=== PATIENT | male | born 1960 | race Two or more races ===

== ENCOUNTER 2021-09-30 22:26 | Emergency (ER) | payer OTHER ==
[~2021-09-30] VITALS: Ht 182.9 cm; Wt 74.5 kg
[2021-10-01] MEDS ORDERED: TRANEXAMIC ACID 1,000 MG/10 ML VIAL IVP ONE (01:15)
[2021-10-01] MEDS ORDERED: LIDOCAINE 1%/EPI 1:100,000 30 ML VIAL SQ ONE (01:15)
[2021-10-01] MEDS ORDERED: FURO20 PO (01:20)
[2021-10-01] MEDS ORDERED: ASPI-1444 PO (01:20)
[2021-10-01] MEDS ORDERED: CHOL500013 PO (01:20)
[2021-10-01] MEDS ORDERED: LOSA-370 PO (01:20)
[2021-10-01] MEDS ORDERED: FERR-89 PO (01:20)
[2021-10-01] MEDS ORDERED: NITR0.4T52 SL (01:20)
[2021-10-01] MEDS ORDERED: CARV6 PO (01:20)
[2021-10-01] MEDS ORDERED: SPIR-37 PO (01:20)
[2021-10-01] MEDS ORDERED: CLOP75TA60 PO (01:20)
[2021-10-01] MEDS ORDERED: ATOR40TA28 PO (01:20)
[2021-10-01 03:10] VITALS: BP 117/74
[2021-10-01] MEDS ORDERED: GELATIN SPONGE,ABSORBABLE 100 MM TP ONE (03:30)
== END 2021-10-01 04:14 | disposition home or self-care (01) ==
LOC: EMS 22:28
DX: S91.312A Laceration without foreign body, left foot, initial encounter (principal); I11.0 Hypertensive heart disease with heart failure; I50.9 Heart failure, unspecified; E78.00 Pure hypercholesterolemia, unspecified; Z88.0 Allergy status to penicillin; Z79.899 Other long term (current) drug therapy; W45.8XXA Other foreign body or object entering through skin, initial encounter; Y93.89 Activity, other specified; Y92.89 Other specified places as the place of occurrence of the external cause; Y99.8 Other external cause status
CPT/HCPCS: 99283; J3490 ×2

== ENCOUNTER 2022-01-21 15:43 | Emergency (ER) | payer OTHER ==
[~2022-01-21] VITALS: Ht 183.5 cm; Wt 75.5 kg
[~2022-01-21 15:43] MED LIST: ASPI-1444 PO; ATOR40TA28 PO; CARV6 PO; CHOL500013 PO; CLOP75TA60 PO; FERR325T27 PO; FURO20 PO; LOSA-381 PO; NITR0.4T52 SL; SPIR-37 PO
[2022-01-21 17:49] LABS: BASOPHILS % (AUTO) 1.2 % (0.0-2.0); EOSINOPHILS % (AUTO) 1.1 % (1.0-6.0); HEMATOCRIT 38.4 % (41-53); HEMOGLOBIN 12.9 g/dL (13.5-17.5); LYMPHOCYTES # (AUTO) 1.9 K/uL (1.0-4.8); LYMPHOCYTES % (AUTO) 32.1 % (22.0-44.0); MEAN CORPUSCULAR HEMOGLOBIN 30.8 pg (26.0-34.0); MEAN CORPUSCULAR HGB CONC 33.6 G/dL (31.0-37.0); MEAN CORPUSCULAR VOLUME 92 fL (80-100); MONOCYTES # (AUTO) 0.4 K/uL (0.1-1.0); MONOCYTES % (AUTO) 7.4 % (2.0-9.0); NEUTROPHILS # (AUTO) 3.4 K/uL (1.8-7.7); NEUTROPHILS % (AUTO) 58.2 % (40.0-70.0); PLATELET COUNT (AUTO) 245 K/uL (150-450); RED BLOOD CELL COUNT(AUTO) 4.19 MIL/uL (4.50-5.90); RED CELL DISTRIBUTION WIDTH 13.6 % (11.5-14.5)
[2022-01-21 18:01] LABS: CALCIUM, TOTAL 9.7 mg/dL (8.8-10.5); CREATININE 1.24 mg/dL (0.60-1.30); POTASSIUM 4.4 mmol/L (3.5-5.1)
[2022-01-21 18:08] LABS: ALBUMIN 3.8 g/dL (3.4-5.0); BILIRUBIN,TOTAL 0.3 mg/dL (0.1-1.0)
[2022-01-21 18:37] VITALS: BP 136/91
== END 2022-01-21 18:39 | disposition home or self-care (01) ==
LOC: EMS 16:05
DX: M25.511 Pain in right shoulder (principal); I11.0 Hypertensive heart disease with heart failure; I50.9 Heart failure, unspecified; Z88.0 Allergy status to penicillin; Z79.899 Other long term (current) drug therapy; Z79.82 Long term (current) use of aspirin
CPT/HCPCS: 80053; 84484; 85025; 93005; 99284